=== PATIENT | female | born 1950 | race Caucasian/White ===

== ENCOUNTER → 2016-06-17 | Outpatient (CLI) | payer MEDICARE, OTHER ==
[~2016-06-17] MED LIST: ASPIRIN325 MG PO; CENTRUM COMPLE1 EACH PO; CLARITIN10 MG PO; COREG6.25 MG PO; COZAAR100 MG PO; MILK THISTLE PO; PRINIVIL5 MG PO; ZOCOR40 MG PO
== END | disposition short-term general hospital (02) ==
LOC: CLCARD 10:17
DX: I25.10 Atherosclerotic heart disease of native coronary artery without angina pectoris (principal); I50.20 Unspecified systolic (congestive) heart failure; I10 Essential (primary) hypertension; E78.5 Hyperlipidemia, unspecified; I35.0 Nonrheumatic aortic (valve) stenosis; I25.5 Ischemic cardiomyopathy; Z95.5 Presence of coronary angioplasty implant and graft